=== PATIENT | female | born 2000 | race Caucasian/White ===

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

== ENCOUNTER 2022-08-17 01:30 | Emergency (ER) | payer OTHER ==
[~2022-08-17] VITALS: Ht 152.4 cm; Wt 63.5 kg
[2022-08-17 01:39] VITALS: BP 96/61
--- NOTE | 2022-08-17 01:49 | NUR ---
PT TO LOBBY
[2022-08-17 01:50] VITALS: BP 96/61
--- NOTE | 2022-08-17 04:29 | NUR ---
pt to chair d
--- NOTE | 2022-08-17 04:35 | NUR ---
Patient being evaluated by physician
[2022-08-17] MEDS ORDERED: IBUPROFEN 600 MG TAB PO ONE (04:40)
[2022-08-17] MEDS ORDERED: TAM75 PO (04:55)
[2022-08-17] MEDS ORDERED: ACET-10509 PO (04:55)
[2022-08-17] MEDS ORDERED: NAPR-1704 PO (04:55)
--- NOTE | 2022-08-17 05:12 | NUR ---
Patient discharged with v/s stable. Written and verbal after care instructions given and explained. Patient alert, oriented and verbalized understanding of instructions. Ambulatory with steady gait. All questions addressed prior to discharge. ID band removed. Patient advised to follow up with PMD. Rx of TYLENOL AND TAMIFLU given. Patient educated on indication of medication including possible reaction and side effects. Opportunity to ask questions provided and answered.
[2022-08-17] MEDS ORDERED: CYCL-711 PO (09:36)
== END 2022-08-17 05:12 | disposition home or self-care (01) ==
LOC: MED 01:30
DX: J11.1 Influenza due to unidentified influenza virus with other respiratory manifestations (principal); Z20.822 Contact with and (suspected) exposure to COVID-19
CPT/HCPCS: 99283

== ENCOUNTER 2022-08-17 06:50 | Emergency (ER) | payer OTHER ==
[~2022-08-17] VITALS: Ht 152.4 cm; Wt 64.0 kg
[~2022-08-17 06:50] MED LIST: ACET-10509 PO; NAPR-1704 PO; TAM75 PO
[2022-08-17 07:39] VITALS: BP 114/64
--- NOTE | 2022-08-17 07:55 | NUR ---
Patient being evaluated by DR REZA at [facility]
[2022-08-17] MEDS ORDERED: ACETAMINOPHEN EXTRA STRENGTH 500 MG TAB PO ONE (08:05)
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
--- NOTE | 2022-08-17 08:20 | NUR ---
Pt ambulated to bed 02 with steady/even gait.
--- NOTE | 2022-08-17 09:30 | NUR ---
Dr. Castro at bedside for US
[2022-08-17 09:31] VITALS: BP 108/72
--- NOTE | 2022-08-17 09:34 | NUR ---
Patient ambulated from bed 02 to chair B.
[2022-08-17] MEDS ORDERED: CYCL-711 PO (09:36)
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
== END 2022-08-17 09:58 | disposition home or self-care (01) ==
LOC: MED 06:50
DX: S76.011A Strain of muscle, fascia and tendon of right hip, initial encounter (principal); R07.89 Other chest pain; M25.551 Pain in right hip; Z79.899 Other long term (current) drug therapy; V89.2XXA Person injured in unspecified motor-vehicle accident, traffic, initial encounter; Y93.89 Activity, other specified; Y92.89 Other specified places as the place of occurrence of the external cause; Y99.8 Other external cause status
CPT/HCPCS: 71046; 73502; 81025; 99284